=== PATIENT | female | born 1960 | race Caucasian/White ===

== ENCOUNTER 2023-07-21 08:44 | Day surgery (SDC) | payer OTHER ==
[2023-07-16 14:58] VITALS: BMI 24.2
[2023-07-21 08:59] VITALS: TEMP 97.7
[2023-07-21 10:53] VITALS: RESP 16
[2023-07-21 11:03] VITALS: BP 132/76; PULSE 88
== END 2023-07-21 11:25 | disposition home or self-care (01) ==
LOC: FASU-ENDO 08:44
PROVIDERS: ATTEND Internal Medicine Gastroenterology
PROC: 0DJD8ZZ Inspection of Lower Intestinal Tract, Via Natural or Artificial Opening Endoscopic (ICD-10-PCS; principal; 2023-07-21 10:22)
DX: Z12.11 Encounter for screening for malignant neoplasm of colon (principal); Z80.0 Family history of malignant neoplasm of digestive organs; Z83.719 Family history of colon polyps, unspecified